=== PATIENT | female | born 1990 | race African-American/Black ===

== ENCOUNTER 2017-07-28 10:27 | Emergency (ER) | payer BC ==
[2017-07-28] MEDS ORDERED: Acetaminophen 325 MG TAB ONE (12:29)
== END 2017-07-28 13:40 | disposition home or self-care (01) ==
LOC: ERS 10:27
DX: J40 Bronchitis, not specified as acute or chronic (principal); F41.9 Anxiety disorder, unspecified; F17.210 Nicotine dependence, cigarettes, uncomplicated
CPT/HCPCS: 99284

== ENCOUNTER 2018-03-25 11:12 | Emergency (ER) | payer BC ==
[2018-03-25] MEDS ORDERED: Ketorolac Tromethamine 30 MG/ML VIAL ONE (12:20)
[2018-03-25] MEDS ORDERED: Metoclopramide HCl 10 MG/2 ML VIAL ONE (12:20)
[2018-03-25] MEDS ORDERED: diphenhydrAMINE 50 MG/ML VIAL ONE (12:20)
[2018-03-25] MEDS ORDERED: Dexamethasone 4 MG TAB ONE (13:23)
== END 2018-03-25 14:31 | disposition home or self-care (01) ==
LOC: ERS 11:12
DX: G43.909 Migraine, unspecified, not intractable, without status migrainosus (principal); F41.9 Anxiety disorder, unspecified; F17.210 Nicotine dependence, cigarettes, uncomplicated; Z71.6 Tobacco abuse counseling
CPT/HCPCS: 96365; 96375; 99406; J1200; J1885; J2765; J8540

== ENCOUNTER 2018-08-30 08:52 | Outpatient (CLI) | payer OTHER ==
--- NOTE | 2018-08-30 10:23 | MRI ---
MRI LUMBAR SPINE WITHOUT CONTRAST: Comparison: None. History: Low back pain causing pins and needle sensation in the lumbar region. Technique: Multiplanar, multisequence MRI images were obtained of the lumbar spine without contrast. FINDINGS: The vertebral bodies and intervertebral discs demonstrate normal height and alignment without fractur e or subluxation. No marrow signal abnormality is seen. The conus medullaris terminates normally at L 1. The prevertebral and paraspinal soft tissues are unremarkable. No significant bulge or protrusion is seen throughout the lumbar spine. No posterior or facet arthros is is seen. No central canal stenosis is present. No neural foraminal stenosis. IMPRESSION: Normal MRI of the lumbar spine. POS: [facility]
== END 2018-08-30 08:53 | disposition home or self-care (01) ==
LOC: MRI 08:52
PROVIDERS: ATTEND Family Medicine
DX: S39.012A Strain of muscle, fascia and tendon of lower back, initial encounter (principal); M54.16 Radiculopathy, lumbar region
CPT/HCPCS: 72148

== ENCOUNTER 2019-05-13 09:08 | Emergency (ER) | payer BC ==
[2019-05-13] MEDS ORDERED: Morphine 4 MG/ML VIAL ONE (09:28)
[2019-05-13 09:41] LABS: Pregnancy Test - Urine (BHCG) POSITIVE (Negative); Pregu Control Background? CLEAR/WHITE (CLR/WHITE); Pregu Control Bar Appear? YES (CONTROL BAR)
[2019-05-13 09:46] LABS: Bilirubin Negative (Negative); Blood, Urine 1+ (Negative); Clarity Turbid (Clear); Glucose, Urine (Dipstick) Normal (Negative); Leukocyte 500 Leu/uL (Negative); Nitrite Negative (Negative); Protein, Urine (Dipstick) 50 mg/dL (Neg-Trace); Urobilinogen 3 mg/dL (Less than 2); WBC/HPF Greater than 50 HPF (0-3)
[2019-05-13 09:50] LABS: #Basophils 0.1 thou/uL (0.0-0.2); #Eosinphils 0.1 thou/uL (0.0-0.7); #Lymphocytes 2.4 thou/uL (1.20-3.40); #Monocytes 0.7 thou/uL (0.11-0.59); %Basophils 0.7 % (0.0-1.0); %Eosinophils 0.8 % (0.0-10.0); %Lymphocytes 25.8 % (21.0-51.0); %Monocytes 7.3 % (0.0-10.0); %Neutrophils 65.4 % (42.0-75.0); Hemoglobin 13.4 g/dL (12.0-16.0); Mean Corpuscular HGB CONC 33.9 g/dL (32.0-36.0); Mean Corpuscular Hemoglobin 29.6 pg (27.0-31.0); Mean Corpuscular Volume 87.2 fL (78.0-98.0); Mean Platelet Volume 8.4 fL (7.4-10.4); Platelet Count 270 thou/uL (130-400); RBC Distribution Width 12.2 % (11.5-14.5); Red Blood Cell (RBC) Count 4.55 mill/uL (4.20-5.40); White Blood Cell (WBC) Count 9.2 thou/uL (4.8-10.8)
[2019-05-13 09:55] LABS: Bacteria/HPF 1+ HPF (None Seen); Mucous/LPF 2+ LPF (<2+)
[2019-05-13 10:10] LABS: ALT (SGPT) 13 U/L (8-55); AST (SGOT) 19 U/L (5-34); Alkaline Phosphatase 63 U/L (40-150); Anion Gap 12 mmol/L (10-20); BUN (Urea Nitrogen) 5 mg/dL (7.0-18.7); Bilirubin, Total 0.4 mg/dL (0.2-1.2); Calc. Creatinine Clearance 0 mL/min (70-130); Calcium 9.4 mg/dL (7.8-10.44); Carbon Dioxide 22 mmol/L (22-29); Chloride 109 mmol/L (98-107); Estimated GFR-MDRD Greater than 90; Globulin 3.1 g/dL (2.4-3.5); Glucose 104 mg/dL (70-105); Lipase 9 U/L (8-78); Potassium 3.6 mmol/L (3.5-5.1); Protein, Total 7.1 g/dL (6.0-8.3); Sodium 139 mmol/L (136-145)
[2019-05-13] MEDS ORDERED: cefTRIAXone\\ROCEPHIN 2 GM VIAL ONE (11:25)
--- NOTE | 2019-05-13 13:13 | ULT ---
PELVIC ULTRASOUND: Transabdominal and endovaginal ultrasound performed. INDICATION: with pain. FINDINGS: There is a circumscribed complex cystic structure within the endometrial cavity which may represent a residual gestational sac. There is echogenicity within this apparent gestational sac indicating yg dder debris. No pole identified. No evidence of heart activity. Both ovaries are identified and show normal flow with color Doppler and spectral analysis. A large r ight ovarian cyst is identified measuring 2.5 to 4.0 cm. There is moderate free fluid in the pelvis. IMPRESSION: A complex cystic structure within the endometrial cavity may represent a degenerating gestational sac and possibly represent missed . There is moderate free fluid in the pelvis and a large righ t ovarian cyst. Recommend continued close followup with serial HCG levels and followup ultrasound as indicated. POS: TRAVIS
== END 2019-05-13 13:05 | disposition home or self-care (01) ==
LOC: ERS 09:08
DX: O03.9 Complete or unspecified spontaneous abortion without complication (principal); F17.210 Nicotine dependence, cigarettes, uncomplicated
CPT/HCPCS: 36415; 76856; 80053; 81003; 81015; 81025; 83690; 84702; 85025; 86900; 86901; 96361; 96365; 96375; J0696; J2270

== ENCOUNTER 2020-02-24 17:42 | Emergency (ER) | payer BC, MEDICAID ==
[~2020-02-24 17:42] MED LIST: Iopamidol 370 76% 100 ML VIAL ONE
[2020-02-24 18:32] LABS: #Basophils 0.1 thou/uL (0.0-0.2); #Eosinphils 0.1 thou/uL (0.0-0.7); #Lymphocytes 3.3 thou/uL (1.20-3.40); #Monocytes 0.8 thou/uL (0.11-0.59); #Neutrophils 8.8 thou/uL (1.40-6.50); %Basophils 1.1 % (0.0-1.0); %Eosinophils 1.1 % (0.0-10.0); %Lymphocytes 25.1 % (21.0-51.0); %Monocytes 5.8 % (0.0-10.0); %Neutrophils 66.9 % (42.0-75.0); Mean Corpuscular HGB CONC 34.6 g/dL (32.0-36.0); Mean Corpuscular Hemoglobin 31.7 pg (27.0-31.0); Mean Corpuscular Volume 91.7 fL (78.0-98.0); Platelet Count 261 thou/uL (130-400); RBC Distribution Width 12.1 % (11.5-14.5); Red Blood Cell (RBC) Count 3.47 mill/uL (4.20-5.40); White Blood Cell (WBC) Count 13.1 thou/uL (4.8-10.8)
[2020-02-24] MEDS ORDERED: Acetaminophen 500 MG TAB ONE (18:43)
[2020-02-24 18:53] LABS: ALT (SGPT) 18 U/L (8-55); AST (SGOT) 22 U/L (5-34); Albumin 3.7 g/dL (3.5-5.0); Alkaline Phosphatase 52 U/L (40-110); Anion Gap 16 mmol/L (10-20); BUN (Urea Nitrogen) 4 mg/dL (7.0-18.7); Bilirubin, Total 0.2 mg/dL (0.2-1.2); CK (CPK) 49 U/L (29-168); Calc. Creatinine Clearance 0 mL/min (70-130); Calcium 9.1 mg/dL (7.8-10.44); Carbon Dioxide 18 mmol/L (22-29); Chloride 107 mmol/L (98-107); Estimated GFR-MDRD Greater than 90; Globulin 2.9 g/dL (2.4-3.5); Glucose 87 mg/dL (70-105); Potassium 3.5 mmol/L (3.5-5.1); Protein, Total 6.6 g/dL (6.0-8.3); Sodium 137 mmol/L (136-145)
--- NOTE | 2020-02-24 19:02 | RAD ---
PORTABLE CHEST: 02/24/20 PROVIDED CLINICAL HISTORY: Chest pain. FINDINGS: No comparisons. Cardiac and mediastinal silhouette is within normal limits. No focal consolidation, pleural fluid or pneumothorax apparent. IMPRESSION: No evidence for an acute cardiopulmonary process. POS: SHAHEEN
--- NOTE | 2020-02-24 19:33 | CT ---
CT arteriogram chest with IV contrast and 3-D imaging HISTORY: Chest pain. Dyspnea. Elevated d-dimer. FINDINGS: There is decreased relative opacification of the pulmonary arteries compared to the pulmona ry veins and aorta, related to timing of bolus. No evidence of right heart strain.. No focal filling defects are apparent. Bovine origin of the great vessels at the aortic arch. Residual thymus within the upper anterior medi astinum. No evidence of mediastinal adenopathy. IMPRESSION : No CT evidence of pulmonary embolus.
== END 2020-02-24 20:39 | disposition home or self-care (01) ==
LOC: ERS 17:42
DX: O99.89 Other specified diseases and conditions complicating pregnancy, childbirth and the puerperium (principal); R07.9 Chest pain, unspecified; Z3A.17 17 weeks gestation of pregnancy
CPT/HCPCS: 36415; 71045; 71275; 80053; 82550; 84484; 85025; 85379; 93005; 96360; 96361; Q9967

== ENCOUNTER 2020-03-16 09:59 | Day surgery (SDC) | payer OTHER ==
[2020-03-16 10:38] VITALS: BMI 27.6
[2020-03-16] MEDS ORDERED: hydrALAZINE 20 MG/ML VIAL SLOW IVP PRN (11:05)
[2020-03-16] MEDS ORDERED: Promethazine HCl 25 MG/ML VIAL IM PRN (11:05)
[2020-03-16] MEDS ORDERED: Morphine 4 MG/ML VIAL IM SCH (11:15)
[2020-03-16] MEDS ORDERED: Acetaminophen 500 MG TAB PO SCH (11:15)
[2020-03-16 11:23] LABS: Bacteria/HPF None Seen HPF (None Seen); Bilirubin Negative (Negative); Blood, Urine Negative (Negative); Clarity Clear (Clear); Glucose, Urine (Dipstick) Normal (Negative); Leukocyte 25 Leu/uL (Negative); Mucous/LPF 1+ LPF (<2+); Nitrite Negative (Negative); Protein, Urine (Dipstick) 10 mg/dL (Neg-Trace); RBC/HPF None Seen HPF (0-3); WBC/HPF 0-3 HPF (0-3)
--- NOTE | 2020-03-16 12:07 | HP ---
PRIMARY OB: Dr. Werner Yip. CHIEF COMPLAINT: Pelvic pain. HISTORY OF PRESENT ILLNESS: The patient is a 30-year-old G3, P1 female with an intrauterine at 29 weeks' gestation, presenting to Labor and Delivery with a several-day history of sharp stabbing pelvic pain. The patient reports that the pain is over her pubic bone area. She reports that it is worse with activity and movement. It has progressed over the last several days from being tolerable and mild to being severe. She thought initially that the pains are Alder Foley contractions and did not think much of them. The patient has several days off at work and has been at home resting. The patient denies fever, cough, headache, chest pain. She does report some shortness of breath over the last while and was seen in the emergency room for chest pain earlier in the month. She denies any chest pain currently. Denies nausea, vomiting. She does report some diarrhea the last couple of days. Denies constipation. Denies any new rashes, hip problems, knee problems, muscle weakness. Denies vaginal bleeding. She does report some discharge. This has been different in the last few days. Denies any urinary urgency or frequency. PAST MEDICAL HISTORY: Negative. PAST SURGICAL HISTORY: Negative. SOCIAL HISTORY: Patient denies drug, alcohol, or tobacco use. 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 ALLERGIES: NO KNOWN DRUG ALLERGIES. MEDICATIONS: vitamins and Lunesta. OB LABS: Unavailable at time of dictation. PHYSICAL EXAMINATION: VITAL SIGNS: Blood pressure is 124/77, heart rate of 92, respiratory rate of 22, temperature 99.0. GENERAL: She appears to be in distress with movement. She is alert and oriented, cooperative, and pleasant to interact with. HEAD: Normocephalic, atraumatic. LUNGS: Clear to auscultation bilaterally. HEART: Regular rate and rhythm. ABDOMEN: Gravid and soft. She does have tenderness particularly in the left lower quadrant with deviation of the uterus she has to the right. She has no tenderness in the right lower quadrant. She has no pubic bone tenderness. No SI joint tenderness. No CVA tenderness. No vertebral or paravertebral tenderness. EXTREMITIES: Nontender, nonedematous. : Vulva is without masses, lesions, or erythema. Vagina is moist. She has minimal discharge. Cervix is visibly closed. VP3 was collected. On digital exam, cervix is firm and closed. Manipulation of the cervix and uterus reproduce this significant pain. Palpation of the fundus does not cause pain. heart tones are in the 150s. Urinalysis and VP3 are collected and results are pending. ASSESSMENT AND PLAN: The patient is a 30-year-old female with an intrauterine at 29 weeks with what appears to be significant musculoskeletal pain of , located primarily in the left lower quadrant, likely involving the cardinal ligament or other ligamentous structures in that region. She has no evidence of labor at this time or history that is not consistent with other things like a kidney stone. We are waiting on a urinalysis and VP3 for further information. The patient has been counseled to things at home that may assist with this pain as it is healing is a belly band, 2 Tylenol 3 times a day to be taken regularly for best results, heat to the area as comfortable. We are giving her 8 mg of morphine IM with 12.5 mg of Phenergan and 2 Tylenol here to give her some temporary relief now. The patient just had an appointment with her provider a few days ago. At that time, symptoms were not severe enough that she felt that they needed to be brought up to a doctor. She is being counseled to follow up with her primary OB as scheduled or sooner if she continues to have persistent problems at home that she cannot manage with [id number] medications. The patient has also been counseled that when she is feeling a bit better, doing squatting exercises with her own body weight may help her with her mobility and perhaps aid in reducing chances of this again as she lifts and moves things more focused with her legs. Job ID: [id number]
== END 2020-03-16 12:16 | disposition home health service (06) ==
LOC: L&D/OP 09:59
PROVIDERS: ATTEND Obstetrics & Gynecology
DX: O99.89 Other specified diseases and conditions complicating pregnancy, childbirth and the puerperium (principal); R10.2 Pelvic and perineal pain; O23.593 Infection of other part of genital tract in pregnancy, third trimester; B96.89 Other specified bacterial agents as the cause of diseases classified elsewhere; Z3A.29 29 weeks gestation of pregnancy
CPT/HCPCS: 81001; 87480; 87510; 87660; J2270; J2550

== ENCOUNTER 2020-03-20 20:37 | Day surgery (SDC) | payer OTHER ==
[2020-03-20 21:08] VITALS: TEMP 98.9; BMI 26.8
[2020-03-20] MEDS ORDERED: Morphine 4 MG/ML VIAL SLOW IVP SCH (22:00)
[2020-03-20 23:01] LABS: #Basophils 0.1 thou/uL (0.0-0.2); #Eosinphils 0.1 thou/uL (0.0-0.7); #Lymphocytes 3.3 thou/uL (1.20-3.40); #Monocytes 1.1 thou/uL (0.11-0.59); #Neutrophils 13.5 thou/uL (1.40-6.50); %Basophils 0.7 % (0.0-1.0); %Eosinophils 0.7 % (0.0-10.0); %Lymphocytes 18.2 % (21.0-51.0); %Neutrophils 74.4 % (42.0-75.0); Hemoglobin 11.2 g/dL (12.0-16.0); Mean Corpuscular HGB CONC 33.8 g/dL (32.0-36.0); Mean Corpuscular Hemoglobin 30.9 pg (27.0-31.0); Mean Corpuscular Volume 91.5 fL (78.0-98.0); Mean Platelet Volume 8.7 fL (7.4-10.4); Platelet Count 273 thou/uL (130-400); RBC Distribution Width 12.4 % (11.5-14.5); White Blood Cell (WBC) Count 18.1 thou/uL (4.8-10.8)
[2020-03-21] MEDS ORDERED: Morphine 4 MG/ML VIAL SLOW IVP SCH (03:00)
--- NOTE | 2020-03-21 07:30 | MRI ---
MRI PELVIS WITHOUT CONTRASTS: Date: 03/21/2020 HISTORY: Pain. COMPARISON: None. FINDINGS: Single, live intrauterine . Anterior placenta. No placental abnormality. No free fluid in the pelvis. No inguinal hernia. No ventral hernia. No adenopathy. The bone marrow signal is normal. No dilated loops of bowel within the pelvis. IMPRESSION: No inguinal hernia. No findings to explain patient's left lower quadrant pain. POS: HOME
[2020-03-21] MEDS ORDERED: hydrALAZINE 20 MG/ML VIAL SLOW IVP PRN (07:43)
[2020-03-21] MEDS ORDERED: HYDROcodone/Acetaminophen 5/325 mg Tablet PO PRN ×2 (07:59)
[2020-03-21] MEDS ORDERED: Ibuprofen 600 MG TAB PO PRN (07:59)
--- NOTE | 2020-03-21 08:01 | PRG ---
DATE OF SERVICE: 03/20/2020 PRIMARY OB: Werner Yip DO, MS CHIEF COMPLAINT: Pelvic pain. HISTORY OF PRESENT ILLNESS: The patient is a 30-year-old female with an intrauterine at 21 weeks and 6 days, who presented to Labor and Delivery with persistent severe left lower quadrant pain, for which she had been seen earlier in the clinic with Dr. Yip. At that time, the patient was given a shot of Rocephin and hydrocodone hoping that it was just a really bad cystitis. The patient was given instructions to return to Labor and Delivery should her pain persist. The patient has re-presented and with this continued left lower quadrant pain, states the hydrocodone, she has taken one tablet and had not helped. 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 She also denies nausea and vomiting. Denies fever. Denies diarrhea or constipation. Denies vaginal bleeding, leakage of fluid, urinary urgency or frequency. Denies headache, chest pain, shortness of breath, new rashes, hip problems, knee problems, muscle weakness. PAST MEDICAL HISTORY: Negative. PAST SURGICAL HISTORY: Negative. SOCIAL HISTORY: Denies drug, alcohol, tobacco use. ALLERGIES: NO KNOWN DRUG ALLERGIES. MEDICATIONS: vitamins and Bonjesta. OB LABS: Unavailable at time of dictation. PHYSICAL EXAMINATION: VITAL SIGNS: Blood pressure 128/70, heart rate of 90, respiratory rate 18. GENERAL: She appears to be in some distress with movement, but otherwise she is alert and oriented, and cooperative and pleasant to interact. HEENT: Head is normocephalic, atraumatic. LUNGS: Clear to auscultation bilaterally. HEART: Has regular rate and rhythm. ABDOMEN: Gravid. She has had persistent tenderness in the left lower pelvis exacerbated with deviation of the uterus to the right. EXTREMITIES: Nontender, nonedematous. IMAGING DATA: MRI was performed for evaluation of other pelvic pathologies including inguinal hernia, presence of a large ovary or cyst. There were no acute findings found on MRI. No free fluid in the pelvis. No inguinal hernia. No ventral hernia. No adenopathy. No dilated loops of bowel in the pelvis. ASSESSMENT AND PLAN: The patient will be updated with these findings. She has tolerated her stay well with pain control. Reassurance will be given as this pain is likely ligamentous in nature. As noted, there is no acute pathology found on imaging and she has no signs or symptoms of infection or labor. The patient is being discharged to home. Job ID: [id number]
[2020-03-21] MEDS ORDERED: Ondansetron PF 4 MG/2 ML Vial ONE (08:16)
== END 2020-03-21 09:20 | disposition home or self-care (01) ==
LOC: L&D/OP 20:37
PROVIDERS: ATTEND Obstetrics & Gynecology
DX: O99.89 Other specified diseases and conditions complicating pregnancy, childbirth and the puerperium (principal); R10.32 Left lower quadrant pain; Z3A.21 21 weeks gestation of pregnancy
CPT/HCPCS: 36415; 72195; 85025; 85384; 96374; 99283; J2270; J2405

== ENCOUNTER 2020-07-02 13:20 | Day surgery (SDC) | payer OTHER ==
[2020-07-02 14:05] VITALS: BMI 27.4
[2020-07-02] MEDS ORDERED: hydrALAZINE 20 MG/ML VIAL SLOW IVP PRN (14:30)
--- NOTE | 2020-07-03 10:22 | SS ---
DATE OF ADMISSION: 07/02/2020 DATE OF DISCHARGE: 07/02/2020 Labor and Delivery Triage Note REGULAR PHYSICIAN: Werner Yip DO MS EVALUATING PHYSICIAN: Lawrence Clay MD CHIEF COMPLAINT: Contractions at home. HISTORY OF PRESENT ILLNESS: Ms. Hodgson is a 30-year-old black G3, P1, AB1 with an estimated date of confinement of 07/26/2020, who presents complaining of contractions at home, approximately every 4-7 minutes. She denies ruptured membranes or vaginal bleeding. Her care has been with Dr. Yip and has been reportedly uncomplicated. PAST OBSTETRICAL HISTORY: Includes 1 vaginal delivery at term. PAST MEDICAL HISTORY: None. PAST SURGICAL HISTORY: None. CURRENT MEDICATIONS: 1. vitamins. 2. Iron. ALLERGIES: NO KNOWN ALLERGIES. SOCIAL HISTORY: Denies tobacco, alcohol, or drug use. FAMILY HISTORY: Unremarkable. REVIEW OF SYSTEMS: Denies nausea, vomiting, fever, chills, ruptured membranes, or vaginal bleeding. PHYSICAL EXAMINATION: VITAL SIGNS: In triage, her vital signs are stable and she is afebrile. GENERAL: She is pleasant and in no acute distress. PELVIC: heart rate tracing is stable with spontaneous accelerations. Only the occasional contraction is seen. She is examined an hour apart and with each exam, her cervix is shown to be 1 cm dilated, 50% effaced with the vertex ballotable. ASSESSMENT: 1. 36-5/7th week intrauterine . 2. No evidence of active labor at this time. PLAN: Patient will be dismissed to home. She will hydrate herself well and continue to watch for signs and symptoms of labor. She states that she has an appointment with Dr. Yip on 07/04/2020. Job ID: [id number]
== END 2020-07-02 15:24 | disposition home or self-care (01) ==
LOC: L&D/OP 13:20
PROVIDERS: ATTEND Obstetrics & Gynecology
DX: O47.03 False labor before 37 completed weeks of gestation, third trimester (principal); O09.293 Supervision of pregnancy with other poor reproductive or obstetric history, third trimester; Z3A.36 36 weeks gestation of pregnancy
CPT/HCPCS: 99282

== ENCOUNTER → 2020-07-17 | Day surgery (SDC) | payer OTHER ==
[~2020-07-17] MED LIST changes: -Iopamidol 370 76% 100 ML VIAL ONE; +hydrALAZINE 20 MG/ML VIAL SLOW IVP PRN
[2020-07-17 15:42] VITALS: BP 134/83; TEMP 98.4
[2020-07-17 15:43] VITALS: BMI 30.7
[2020-07-17 16:23] LABS: Amnisure Test No Membranes Rupture (No Rupture)
[2020-07-17 16:24] LABS: Amnisure Internal Control QC ACCEPTABLE (ACCEPTABLE)
--- NOTE | 2020-07-17 20:41 | PRG ---
DATE OF SERVICE: 07/17/2020 PRIMARY OB: Dr. Werner Yip. CHIEF COMPLAINT: Leakage of fluid. HISTORY OF PRESENT ILLNESS: The patient is a 30-year-old, G3, P1 female with an intrauterine at 38 weeks and 2 days, presenting to Labor and Delivery with leakage of fluid since about 5:00. The patient reports that she has been having continuous moisture onto her pad throughout the day. It has not been enough to soak through clothing, but she feels like it is more watery than discharge. She denies vaginal bleeding. She denies uterine contractions. She denies fever, cough, headache, chest pain, or shortness of breath. She denies nausea or vomiting. She denies diarrhea or constipation, hip problems, knee problems, muscle weakness, or urinary urgency or frequency. PAST MEDICAL HISTORY: Negative. PAST SURGICAL HISTORY: Negative. SOCIAL HISTORY: Negative. Denies drug, alcohol, or tobacco use. ALLERGIES: NO KNOWN DRUG ALLERGIES. MEDICATIONS: vitamins and iron. OB LABORATORY DATA: Blood type is A positive. Antibody screen is negative. VDRL is nonreactive in the first and third trimester. HIV is nonreactive in the first and third trimester. GC and Chlamydia are negative. She is rubella immune. 1-hour Glucola is 105. She is GBS negative. REVIEW OF SYSTEMS: Per HPI. PHYSICAL EXAMINATION: VITAL SIGNS: Blood pressure is 134/72, heart rate of 84, respiratory rate of 18, saturating 100% on room air, and temperature 98.4. GENERAL: She appears to be in no acute distress. She is alert, oriented, cooperative, and pleasant to interact with. HEAD: Normocephalic and atraumatic. LUNGS: Clear to auscultation bilaterally. HEART: Has a regular rate and rhythm. EXTREMITIES: Nontender and nonedematous. Vulva is without masses, lesions, or erythema. She does have some curd-like discharge on her labia. On speculum exam, there is no evidence of pooling with cough or Valsalva, but she does have quite a bit of white discharge present. Cervical exam per nursing staff is 1, 40, and -2 station. Declined repeating her exam at the time of my exam. heart tracing shows the fetus with a baseline in the 130s with moderate long-term variability, positive 15 x 15 accelerations, no decelerations. She has occasional contractions and some irritability. AmniSure test is negative. ASSESSMENT AND PLAN: The patient is a 30-year-old, G3, P1 female with an intrauterine at 38 weeks and 2 days, presenting for some leakage of fluid. The patient has no evidence of rupture of membranes at this time. Clinically, the patient appears to have a yeast infection that maybe explaining some increased transudate to the area, perhaps, causing her to feel more wet than usual. The patient has been counseled to use some gobl-zha-fzoqctz medications to see if this will resolve. She has been given term labor precautions. Fetus has a category 1 tracing and reactive NST, and the patient has been discharged home with instructions to follow up with her primary OB on Thursday as scheduled. Job ID: [id number]
== END ==
LOC: L&D/OP 15:04
PROVIDERS: ATTEND Obstetrics & Gynecology
DX: O99.89 Other specified diseases and conditions complicating pregnancy, childbirth and the puerperium (principal); N89.8 Other specified noninflammatory disorders of vagina; O98.813 Other maternal infectious and parasitic diseases complicating pregnancy, third trimester; A74.9 Chlamydial infection, unspecified; Z3A.38 38 weeks gestation of pregnancy; Z79.899 Other long term (current) drug therapy
CPT/HCPCS: 84112; 99284

== ENCOUNTER 2020-07-19 04:47 | Inpatient (IN) | payer OTHER ==
[2020-07-19] MEDS ORDERED: hydrALAZINE 20 MG/ML VIAL SLOW IVP PRN ×3 (05:14→22:37)
[2020-07-19 05:28] VITALS: BMI 31.1
--- NOTE | 2020-07-19 07:17 | PDOC.LDHP ---
Labor and Delivery H&P Chief complaint: contractions HPI: 30 y/o at 38w4d, patient of Dr. Yip, presents with ctx this morning. Denies VB, LOF, or decreased FM. She was seen a couple days ago for yeast infection and started treatment last night. ROS neg for HEENT, cv, pulm, gi, gu, neuro, psych, skin, musculoskeletal or constitutional symptoms other than mentioned above. OB History Details: 1 at term Current complications: none Past Medical History: None Current medications: pre- vitamins Previous surgical history: none Allergies/Adverse Reactions: Allergies Allergy/AdvReac Type Severity Reaction Status Date / Time No Known Allergies Allergy Verified 07/19/20 05:24 Social history: none - Physical Exam Vital signs reviewed and normal: yes Abnormal vital signs: mild range BPs General: NAD, resting Lungs: nonlabored breathing Abdomen: gravid Extremeties: no edema FHT: category 1 (135, mod variability, + accels, no decels) [place] contractions every: 3-5 mins - Vaginal Exam cm dilated: 2 Effacement: 25% Station: -3 - Assessment 30 y/o at 38w4d with ctx and mild range BPs. status reassuring with reactive NST. - Plan -: PIH labs pending. Continue to monitor BPs. Will recheck around 8am.
[2020-07-19] MEDS ORDERED: Carboprost 250 MCG/ML AMP IM PRN (07:38)
[2020-07-19] MEDS ORDERED: HYDROcodone/Acetaminophen 5/325 mg Tablet PO PRN ×2 (07:38)
[2020-07-19] MEDS ORDERED: Butorphanol Tartrate 1 MG/ML VIAL SLOW IVP PRN (07:38)
[2020-07-19] MEDS ORDERED: Promethazine HCl 25 MG/ML VIAL IM PRN (07:38)
[2020-07-19] MEDS ORDERED: Ondansetron PF 4 MG/2 ML Vial IVP PRN (07:38)
[2020-07-19] MEDS ORDERED: Diphenoxylate HCl/Atropine Tablet PO PRN ×2 (07:38)
[2020-07-19] MEDS ORDERED: NS / Oxytocin 40 units/1000ml 1,000 ML IV PRN (07:38)
[2020-07-19] MEDS ORDERED: Lidocaine 1% (PF) 30 ML VIAL SC PRN (07:38)
[2020-07-19] MEDS ORDERED: Ibuprofen 800 MG TAB PO PRN (07:38)
[2020-07-19] MEDS ORDERED: Acetaminophen 500 MG TAB PO PRN (07:38)
[2020-07-19] MEDS ORDERED: Misoprostol 200 MCG TAB PR PRN (07:38)
--- NOTE | 2020-07-19 07:42 | PDOC.BPN ---
- Brief Progress Note Encounter Date: 07/19/20 Encounter Time: 07:41 Patient with continued mild range BPs at term. Will admit for induction/augmentation. Labs pending.
[2020-07-19] MEDS ORDERED: NS w/ Oxytocin 10 units 500 ML IV SCH (07:45)
[2020-07-19] MEDS: Lactated Ringer's 1,000 ML IV SCH ×3 (07:50→15:06)
[2020-07-19 07:54] LABS: #Basophils 0.1 thou/uL (0.0-0.2); #Eosinphils 0.1 thou/uL (0.0-0.7); #Lymphocytes 2.1 thou/uL (1.20-3.40); #Monocytes 1.1 thou/uL (0.11-0.59); #Neutrophils 10.9 thou/uL (1.40-6.50); %Basophils 0.4 % (0.0-1.0); %Eosinophils 0.4 % (0.0-10.0); %Lymphocytes 14.5 % (21.0-51.0); %Neutrophils 76.8 % (42.0-75.0); Hemoglobin 10.8 g/dL (12.0-16.0); Mean Corpuscular HGB CONC 33.1 g/dL (32.0-36.0); Mean Corpuscular Hemoglobin 30.1 pg (27.0-31.0); Mean Corpuscular Volume 90.8 fL (78.0-98.0); Mean Platelet Volume 9.4 fL (7.4-10.4); Platelet Count 208 thou/uL (130-400); RBC Distribution Width 15.3 % (11.5-14.5); Red Blood Cell (RBC) Count 3.59 mill/uL (4.20-5.40); White Blood Cell (WBC) Count 14.2 thou/uL (4.8-10.8)
[2020-07-19 08:02] LABS: Creatinine, Urine 56.78 mg/dL (47-110); Protein, Urine Random Quant Less than 10 mg/dL (1-14)
[2020-07-19 08:14] LABS: ALT (SGPT) Less than 7 U/L (8-55); AST (SGOT) 14 U/L (5-34); Alkaline Phosphatase 173 U/L (40-110); Anion Gap 13 mmol/L (10-20); BUN (Urea Nitrogen) Less than 4 mg/dL (7.0-18.7); Bilirubin, Total 0.4 mg/dL (0.2-1.2); Calc. Creatinine Clearance 201 mL/min (70-130); Calcium 8.2 mg/dL (7.8-10.44); Carbon Dioxide 20 mmol/L (22-29); Chloride 106 mmol/L (98-107); Estimated GFR-MDRD Greater than 90; Glucose 81 mg/dL (70-105); Potassium 3.7 mmol/L (3.5-5.1); Sodium 135 mmol/L (136-145)
[2020-07-19 09:32] LABS: Syphilis Antibody Nonreactive (Nonreactive); Syphilis Antibody Index 0.04 S/CO (<1.00 Non-Reactive)
[2020-07-19 09:33] LABS: Hep B Surf Ag Non-Reactive S/CO (NonReactive)
--- NOTE | 2020-07-19 12:49 | PDOC.LDPN ---
Labor & Delivery Progress Note - Subjective Subjective: comfortable - Objective Vital signs reviewed and normal: yes (mild range BP) General: breathing through contractions Dilation: 4 Effacement: 50% Station: -1 FHT: category 1 - Assessment (1) 38 weeks gestation of Code(s): Z3A.38 - 38 WEEKS GESTATION OF Current Visit: Yes Status: Acute (2) Gestational hypertension Code(s): O13.9 - GESTATIONAL HTN W/O SIGNIFICANT PROTEINURIA, UNSP TRIMESTER Current Visit: Yes Status: Acute Plan: continue plan of care -: Continue pitocin augmentation.
[2020-07-19] MEDS ORDERED: Fentanyl 4 mcg/Bup 0.1% Cadd 100 ML ONE ×2 (13:25→20:09)
--- NOTE | 2020-07-19 16:38 | PDOC.LDPN ---
Labor & Delivery Progress Note - Subjective Subjective: comfortable - Objective Vital signs reviewed and normal: yes General: resting Dilation: 6 Effacement: 90% Station: -1 FHT: category 1 [place] contractions every: 4 - Assessment (1) 38 weeks gestation of Code(s): Z3A.38 - 38 WEEKS GESTATION OF Current Visit: Yes Status: Acute (2) Gestational hypertension Code(s): O13.9 - GESTATIONAL HTN W/O SIGNIFICANT PROTEINURIA, UNSP TRIMESTER Current Visit: Yes Status: Acute Plan: continue plan of care
[2020-07-19 17:58] LABS: SARS-CoV-2 MS2 Positive; SARS-CoV-2 N Gene Negative; SARS-CoV-2 S Gene Negative; SARS-CoV-2 by NAA Not Detected (NotDetected); SARS-CoV-2 orf1ab Negative
[2020-07-19] MEDS ORDERED: Lidocaine 1% (PF) 30 ML VIAL ONE (19:27)
[2020-07-19] MEDS ORDERED: NS / Oxytocin 40 units/1000ml 1,000 ML ONE (19:27)
[2020-07-19] MEDS ORDERED: Misoprostol 200 MCG TAB ONE (22:22)
[2020-07-19] MEDS ORDERED: Lanolin Ointment 7 GM TUBE TOP PRN (22:37)
[2020-07-19] MEDS ORDERED: Milk Of Magnesia 30 ML UDCUP PO PRN (22:37)
[2020-07-19] MEDS ORDERED: Bisacodyl 10 MG SUPP PR PRN (22:37)
--- NOTE | 2020-07-19 22:41 | PDOC.OPDEL ---
OB Operative/Delivery Note Delivery Dr/Surgeon: Lj Assist: None Pre-Delivery Diagnosis: active labor, other (Gestational HTN) Procedure/Post Delivery Dx: spontaneous vaginal delivery Weeks gestation: 38 Anesthesia: epidural - Findings A Sex: male - 1 min: 8 (verbal) - 5 min: 9 (verbal) - Additional Findings/Plan Placenta delivered: spontaneous (schult at 2220;baby at 2215. Cytotec 1000mcg SD x1 at 2224 for brief uterine atony...resolved with I/O cath and uterine massage.) Estimated blood loss: 500 Compilations/Other Findings: no lacs, no NC, baby vigorous. Delayed cord clamp done for 30 seconds. Post delivery plan: routine recovery
[2020-07-19] MEDS ORDERED: NS / Oxytocin 40 units/1000ml 1,000 ML IV SCH (22:45)
--- NOTE | 2020-07-20 01:31 | PDOC.BPN ---
- Brief Progress Note Encounter Date: 07/20/20 Encounter Time: 01:30 Temp noted as 101 but clinically well. Could be cytotec effect as 1000mcg were given. I will order ancef 2 hrams IV x 1 now to cover just in case
[2020-07-20] MEDS ORDERED: CEFAZOLIN 2 GM in Premix Bag 1 BAG IVPB SCH (01:45)
[2020-07-20] MEDS: Ibuprofen 800 MG TAB PO SCH ×3 (04:59→21:45)
[2020-07-20 05:14] LABS: Hemoglobin 7.9 g/dL (12.0-16.0); Mean Corpuscular HGB CONC 33.4 g/dL (32.0-36.0); Mean Corpuscular Hemoglobin 30.3 pg (27.0-31.0); Mean Corpuscular Volume 90.8 fL (78.0-98.0); Mean Platelet Volume 10.1 fL (7.4-10.4); Platelet Count 167 thou/uL (130-400); RBC Distribution Width 15.3 % (11.5-14.5); White Blood Cell (WBC) Count 14.8 thou/uL (4.8-10.8)
[2020-07-20] MEDS: Prenatal Vitamin 1 TAB PO SCH (07:37)
[2020-07-20] MEDS: Docusate Calcium (SURFAK) 240 MG CAP PO SCH ×2 (07:37→21:46)
[2020-07-20] MEDS: Acetaminophen/Codeine 30-300mg Tablet PO PRN ×3 (07:40→20:37)
[2020-07-20] MEDS ORDERED: Adacel (T-DAP) 0.5 ML SYRINGE IM ONE (09:00)
[2020-07-20] MEDS ORDERED: Measles/Mumps/Rubella 10 MCG/0.5 ML VIAL SC ONE (09:00)
--- NOTE | 2020-07-20 09:33 | PDOC.PP ---
Post Progress Note Post Day #: 1 Subjective: doing well, formula feeding, no concerns PO intake tolerated: yes Flatus: yes Ambulation: yes Vital Signs (12 hours) Temp Pulse Resp BP Pulse Ox 07/20/20 07:56 98.8 F 81 20 131/77 99 07/20/20 05:00 99.3 F 88 18 129/70 99 07/20/20 02:45 98.9 F 99 20 132/66 07/20/20 01:45 99.9 F H 91 20 142/84 H 99 Weight Weight 193 lb - Physical Examination General: NAD Respiratory: non-labored breathing Fundus firm & at: below umb Neurological: no gross focal deficits Psychiatric: A&Ox3, normal affect Result Diagrams: 07/20/20 04:47 07/19/20 07:26 Additional Labs: Post Labs Hep Bs Antigen Non-Reactive S/CO (NonReactive) 07/19/20 08:00 Blood Type A POSITIVE 07/19/20 08:00 (1) 38 weeks gestation of Code(s): Z3A.38 - 38 WEEKS GESTATION OF Status: Acute (2) Gestational hypertension Code(s): O13.9 - GESTATIONAL HTN W/O SIGNIFICANT PROTEINURIA, UNSP TRIMESTER Status: Acute - Assessment/Plan PPD1 doing well, anticipate DC tomorrow, BP normal to mild.
[2020-07-20] MEDS: Ferrous Sulfate 325 MG TAB PO SCH ×2 (09:39→17:19)
[2020-07-21] MEDS: Ibuprofen 800 MG TAB PO SCH ×2 (05:27→13:38)
--- NOTE | 2020-07-21 07:02 | PDOC.PP ---
Post Progress Note Post Day #: 2 Subjective: Feeling well. Looking forward to going home today. PO intake tolerated: yes Flatus: yes Ambulation: yes Vital Signs (12 hours) Temp Pulse Resp BP Pulse Ox 07/20/20 20:15 98.3 F 85 16 118/59 L 99 Weight Weight 87.543 kg - Physical Examination General: NAD Cardiovascular: no m/r/g, RRR Respiratory: clear to auscultation bilaterally Abdominal: + bowel sounds, lochia (downtrending), no distention, appropriately TTP Fundus firm & at: 1 fingerwidth below umbilicus Neurological: no gross focal deficits Psychiatric: A&Ox3, normal affect Result Diagrams: 07/20/20 04:47 07/19/20 07:26 Additional Labs: Post Labs Hep Bs Antigen Non-Reactive S/CO (NonReactive) 07/19/20 08:00 Blood Type A POSITIVE 07/19/20 08:00 (1) 38 weeks gestation of Code(s): Z3A.38 - 38 WEEKS GESTATION OF Status: Acute (2) Gestational hypertension Code(s): O13.9 - GESTATIONAL HTN W/O SIGNIFICANT PROTEINURIA, UNSP TRIMESTER Status: Acute - Assessment/Plan 30 yo G3 now P2012 at 38 wga: PPD #2 s/p : - doing well, routine cares - meeting all milestones gHTN - BP 130/70s, may have chronic hypertension. - Recommend BP follow up Dispo: anticipate d/c today. F/U as requested by PCP. Addendum - Attending - Attending Attestation Date/Time: 07/21/20 [id number] I personally evaluated the patient and discussed the management with Dr. Causey. I agree with the History, Examination, Assessment and Plan documented above.
[2020-07-21] MEDS: Docusate Calcium (SURFAK) 240 MG CAP PO SCH (09:06)
[2020-07-21] MEDS: Ferrous Sulfate 325 MG TAB PO SCH (09:06)
[2020-07-21] MEDS: Prenatal Vitamin 1 TAB PO SCH (09:06)
[2020-07-21] MEDS: Acetaminophen/Codeine 30-300mg Tablet PO PRN (09:09)
[2020-07-21 09:12] VITALS: TEMP 97.7
[2020-07-21 10:11] VITALS: BP 141/87
== END 2020-07-21 13:40 | disposition home or self-care (01) | DRG 807 ==
LOC: L&D/OP 04:47 → L&D 22:35 → 3SW 07-20 02:22
PROVIDERS: ADMIT Obstetrics & Gynecology; ATTEND Obstetrics & Gynecology
PROC: 10E0XZZ Delivery of Products of Conception, External Approach (ICD-10-PCS; principal; 2020-07-19)
PROC: 10907ZC Drainage of Amniotic Fluid, Therapeutic from Products of Conception, Via Natural or Artificial Opening (ICD-10-PCS; 2020-07-19)
PROC: 3E033VJ Introduction of Other Hormone into Peripheral Vein, Percutaneous Approach (ICD-10-PCS; 2020-07-19)
PROC: 3E0P7VZ Introduction of Hormone into Female Reproductive, Via Natural or Artificial Opening (ICD-10-PCS; 2020-07-19)
DX: O13.4 Gestational [pregnancy-induced] hypertension without significant proteinuria, complicating childbirth (principal); Z37.0 Single live birth; Z20.828 Contact with and (suspected) exposure to other viral communicable diseases; O75.89 Other specified complications of labor and delivery; Z3A.38 38 weeks gestation of pregnancy
CPT/HCPCS: 36415; 51702; 80053; 82570; 84156; 85025; 85027; 86780; 86850; 86900; 86901; 87340; 87635; 99285; J0595; J0690; J2001; J2550; J2590; U0003

== ENCOUNTER 2020-08-14 16:59 | Observation (INO) | payer OTHER ==
[2020-08-14] MEDS ORDERED: hydrALAZINE 20 MG/ML VIAL SLOW IVP PRN (17:03)
[2020-08-14] MEDS ORDERED: Ondansetron PF 4 MG/2 ML Vial IVP PRN (17:03)
[2020-08-14] MEDS ORDERED: Promethazine HCl 25 MG/ML VIAL IM PRN (17:03)
[2020-08-14] MEDS ORDERED: Calcium Gluconate 4.6 MEQ in Sodium Chloride 0.9% 100 ML IVPB PRN (17:03)
[2020-08-14] MEDS ORDERED: Zolpidem Tartrate 5 MG TAB PO PRN (17:03)
[2020-08-14] MEDS ORDERED: Butorphanol Tartrate 1 MG/ML VIAL SLOW IVP PRN (17:03)
[2020-08-14] MEDS ORDERED: Labetalol HCl 100 MG/20 ML VIAL SLOW IVP PRN (17:07)
[2020-08-14 17:08] VITALS: BMI 27.4
[2020-08-14] MEDS ORDERED: Magnesium Sulfate 20 gm/500 ml 20 GM/500 ML BAG ONE (17:11)
--- NOTE | 2020-08-14 17:12 | PDOC.LDHP ---
Labor and Delivery H&P Chief complaint: other (c/o RESENDIZ and elevated BP x 4 days) HPI: 30 yo BF s/p on 07/19/20 presents c/o RESENDIZ and elevated BP x [address]. [address] Yip yesterday and started on Procardia 30 XL. Went ot ER this AM, noted to have severe range pressures depite Apresoline. CT of head obtained, normal. Labs are normal. Grav: 3 Para: 2 OB History Details: x2 SAB x1, no D&C Current complications: other (see above) Current medications: iron (Procardia XL 30 QD) Previous surgical history: none Allergies/Adverse Reactions: Allergies Allergy/AdvReac Type Severity Reaction Status Date / Time No Known Allergies Allergy Verified 07/19/20 05:24 Social history: none - Physical Exam Vital signs reviewed and normal: yes Abnormal vital signs: BP to 160/100s in ER General: NAD Heart: RRR Lungs: CTAB Abdomen: NTTP Extremeties: trace edema - Assessment PIH - Plan Plan: observation in L&D, magnesium for seizure prophylaxis (Procardia, Labetalol ordered Watch BPs carefully. Dr. Yip aware of admit)
[2020-08-14] MEDS ORDERED: Magnesium Sulfate 20 gm/500 ml 20 GM/500 ML BAG IVPB SCH (17:15)
[2020-08-14] MEDS ORDERED: Ibuprofen 800 MG TAB PO PRN (19:16)
[2020-08-14 21:04] VITALS: TEMP 98.4
[2020-08-15] MEDS: Lactated Ringer's 1,000 ML IV SCH ×2 (06:40→17:23)
--- NOTE | 2020-08-15 08:11 | PDOC.LDPN ---
Labor & Delivery Progress Note - Subjective Subjective: comfortable, other (headache resolved) - Objective Vital signs reviewed and normal: yes (normal BP) General: NAD, resting Other exam findings: No SENIOR CHEMIST findings - Assessment (1) Preeclampsia in period Code(s): O14.95 - UNSPECIFIED PRE-ECLAMPSIA, COMPLICATING THE PUERPERIUM Current Visit: Yes Status: Acute Plan: continue plan of care -: Continue magnesuim for seizure prophylaxis through 24 hours. We discussed observation overnight to watch BP off magnesium with likely DC tomorrow.
[2020-08-15] MEDS: Acetaminophen 500 MG TAB PO PRN ×2 (08:58→15:12)
[2020-08-15] MEDS ORDERED: NIFEdipine XL 30 MG TAB PO SCH (09:00)
[2020-08-15] MEDS ORDERED: Labetalol 100 MG TAB PO SCH ×2 (15:00→21:00)
[2020-08-15 23:30] VITALS: BP 121/73
--- NOTE | 2020-08-16 07:52 | PDOC.LDPN ---
Labor & Delivery Progress Note - Subjective Subjective: comfortable - Objective Vital signs reviewed and normal: yes General: resting - Assessment (1) Preeclampsia in period Code(s): O14.95 - UNSPECIFIED PRE-ECLAMPSIA, COMPLICATING THE PUERPERIUM Current Visit: Yes Status: Acute Plan: other -: HD2 sp admission for post severe PIH. Magnesium off since yesterday, BP WNL after labetalol 100mg PO. RESENDIZ resolved yesterday and has not returned. Plan for DC home today, close BP monitoring at home and labetalol 100mg BID-will watch BP closely and hold for less than 130/80.
--- NOTE | 2020-08-17 02:17 | DIS ---
DATE OF ADMISSION: 08/14/2020 DATE OF DISCHARGE: 08/16/2020 ADMISSION DIAGNOSIS: Severe preeclampsia, remote from delivery during the . DISCHARGE DIAGNOSIS: Severe preeclampsia, remote from delivery during the . HOSPITAL COURSE: Ms. Jose Hodgson was admitted on 08/14/2020 for severe range blood pressures and a headache approximately 3 weeks . She presented after a 4-day headache and severe range blood pressures noted at home. With admission, she was placed on magnesium for seizure prophylaxis, her magnesium was discontinued the following day with mild range blood pressures noted, but resolution of her headache. She was started on labetalol 100 mg twice a day with normalization of her blood pressures. Her headache did not return. On hospital day #2, she was discharged home in good condition with plans to check her blood pressure twice a day and to hold her labetalol for blood pressures less than 130/80 based on her series of blood pressures after one dose of p.o. medications. She is to have blood pressure check in our office in 1 week and a visit that has previously been scheduled. She was discharged to home in good condition. Job ID: [id number]
== END 2020-08-16 08:10 | disposition home or self-care (01) ==
LOC: L&D 16:59 → UNDOADMIN 16:59 → L&D 17:03 → INTOOBSV 17:03
PROVIDERS: ADMIT Obstetrics & Gynecology; ATTEND Obstetrics & Gynecology
DX: O14.15 Severe pre-eclampsia, complicating the puerperium (principal); O13.5 Gestational [pregnancy-induced] hypertension without significant proteinuria, complicating the puerperium; O99.893 Other specified diseases and conditions complicating puerperium; R51.9 Headache, unspecified
CPT/HCPCS: 36415; 70450; 80053; 81003; 81015; 83735; 84550; 85025; 85610; 85730; 86850; 86900; 86901; 96374; 96375; 96376; G0378; J0360; J1885; J3475; J7050

== ENCOUNTER 2022-04-05 13:17 | Emergency (ER) | payer BC ==
[2022-04-05] MEDS ORDERED: ISOVUE-370 76%-LOCM 1 ML ONE (13:38)
[2022-04-05 14:35] LABS: #Eosinphils 0.1 thou/uL (0.0-0.7); #Lymphocytes 2.7 thou/uL (1.20-3.40); #Monocytes 0.6 thou/uL (0.11-0.59); #Neutrophils 4.6 thou/uL (1.40-6.50); %Basophils 0.3 % (0.0-1.0); %Eosinophils 0.9 % (0.0-10.0); %Lymphocytes 33.9 % (21.0-51.0); %Monocytes 7.1 % (0.0-10.0); %Neutrophils 57.7 % (42.0-75.0); Mean Corpuscular HGB CONC 32.9 g/dL (32.0-36.0); Mean Corpuscular Hemoglobin 30.3 pg (27.0-31.0); Mean Platelet Volume 7.7 fL (7.4-10.4); Platelet Count 289 thou/uL (130-400); RBC Distribution Width 12.1 % (11.5-14.5); Red Blood Cell (RBC) Count 4.62 mill/uL (4.20-5.40); White Blood Cell (WBC) Count 7.9 thou/uL (4.8-10.8)
[2022-04-05 14:36] LABS: BHCG - Serum Negative (NEGATIVE); Pregs Control Background? CLEAR/WHITE (CLR/WHITE); Pregs Control Bar Appear? YES (CONTROL BAR)
[2022-04-05 14:55] LABS: ALT (SGPT) Less than 7 U/L (8-55); AST (SGOT) 13 U/L (5-34); Albumin 4.2 g/dL (3.5-5.0); Alkaline Phosphatase 52 U/L (40-110); Anion Gap 13 mmol/L (10-20); BUN (Urea Nitrogen) 6 mg/dL (7.0-18.7); Bilirubin, Total 0.5 mg/dL (0.2-1.2); Calc. Creatinine Clearance 0 mL/min (70-130); Calcium 9.5 mg/dL (7.8-10.44); Carbon Dioxide 20 mmol/L (22-29); Chloride 108 mmol/L (98-107); Globulin 3.7 g/dL (2.4-3.5); Glucose 86 mg/dL (70-105); Lipase 13 U/L (8-78); Potassium 4.2 mmol/L (3.5-5.1); Protein, Total 7.9 g/dL (6.0-8.3); Sodium 137 mmol/L (136-145)
[2022-04-05] MEDS ORDERED: Ondansetron PF 4 MG/2 ML Vial ONE (15:56)
[2022-04-05] MEDS ORDERED: Ketorolac Tromethamine 30 MG/ML VIAL ONE (15:56)
[2022-04-05 16:43] LABS: Bilirubin Negative (Negative); Blood, Urine Negative (Negative); Glucose, Urine (Dipstick) Normal (Negative); Ketone, Urine Negative (Negative); Leukocyte Negative Leu/uL (Negative); Nitrite Negative (Negative); Protein, Urine (Dipstick) Negative (Neg-Trace); Specific Gravity, Urine 1.018 (1.002-1.036); Urobilinogen Normal mg/dL (Less than 2); pH, Urine 5.5 (5.0-9.0)
[2022-04-05] MEDS ORDERED: Dicyclomine 20 MG TAB ONE (16:45)
[2022-04-05] MEDS ORDERED: Pantoprazole 40 MG VIAL ONE (16:45)
[2022-04-05 16:48] LABS: Clarity Hazy (Clear); Pregnancy Test - Urine (BHCG) Negative (Negative); Pregu Control Background? CLEAR/WHITE (CLR/WHITE); Pregu Control Bar Appear? YES (CONTROL BAR); Specific Gravity 1.018 (1.002-1.036)
[2022-04-05] MEDS ORDERED: Acetaminophen 500 MG TAB ONE (17:40)
== END 2022-04-05 17:46 | disposition home or self-care (01) ==
LOC: ERS 13:17 → EEVIPCON 13:17 → ERS 17:46
DX: U07.1 COVID-19 (principal); R10.13 Epigastric pain; F17.210 Nicotine dependence, cigarettes, uncomplicated
CPT/HCPCS: 74177; 80053; 81003; 81025; 83690; 84703; 85025; 93005; 96361; 96374; 96375; C9113; J1885; J2405; Q9966; U0003; U0005

== ENCOUNTER 2022-11-28 07:38 | Emergency (ER) | payer BC, OTHER ==
[2022-11-28] MEDS ORDERED: Proparacaine 0.5% Opth 15 ML BOT ONE (08:14)
[2022-11-28] MEDS ORDERED: Fluorescein Opthalmic Strip ONE (08:14)
[2022-11-28] MEDS ORDERED: Acetaminophen 500 MG TAB ONE (09:10)
[2022-11-28] MEDS ORDERED: Ketorolac Tromethamine 30 MG/ML VIAL ONE (09:10)
== END 2022-11-28 09:28 | disposition home or self-care (01) ==
LOC: ERS 07:38
DX: S05.01XA Injury of conjunctiva and corneal abrasion without foreign body, right eye, initial encounter (principal); F17.210 Nicotine dependence, cigarettes, uncomplicated; X58.XXXA Exposure to other specified factors, initial encounter
CPT/HCPCS: 96372; 99283; J1885

== ENCOUNTER 2023-02-21 20:40 | Emergency (ER) | payer BC, OTHER ==
[2023-02-21 21:07] LABS: Bilirubin Negative (Negative); Blood, Urine Negative (Negative); Clarity Clear (Clear); Glucose, Urine (Dipstick) Normal (Negative); Ketone, Urine Trace mg/dL (Negative); Leukocyte Negative Leu/uL (Negative); Nitrite Negative (Negative); Protein, Urine (Dipstick) Negative (Neg-Trace); Specific Gravity, Urine 1.024 (1.002-1.036); Urobilinogen Normal mg/dL (Less than 2); pH, Urine 6.5 (5.0-9.0)
[2023-02-21 21:39] LABS: #Basophils 0.1 thou/uL (0.0-0.2); #Eosinphils 0.1 thou/uL (0.0-0.7); #Lymphocytes 3.2 thou/uL (1.20-3.40); #Monocytes 0.5 thou/uL (0.11-0.59); #Neutrophils 4.5 thou/uL (1.40-6.50); %Basophils 0.8 % (0.0-1.0); %Eosinophils 1.2 % (0.0-10.0); %Neutrophils 53.9 % (42.0-75.0); Mean Corpuscular HGB CONC 31.8 g/dL (32.0-36.0); Mean Corpuscular Hemoglobin 28.7 pg (27.0-31.0); Mean Corpuscular Volume 90.4 fl (78.0-98.0); Mean Platelet Volume 8.5 fL (7.4-10.4); Platelet Count 290 10x3/uL (130-400); RBC Distribution Width 12.2 % (11.5-14.5); Red Blood Cell (RBC) Count 4.52 mill/uL (4.20-5.40); White Blood Cell (WBC) Count 8.4 10x3/uL (4.8-10.8)
[2023-02-21 21:45] LABS: ALT (SGPT) Less than 7 U/L (8-55); AST (SGOT) 13 U/L (5-34); Albumin 4.1 g/dL (3.5-5.0); Alkaline Phosphatase 49 U/L (40-110); Anion Gap 13 mmol/L (10-20); BUN (Urea Nitrogen) 7 mg/dL (7.0-18.7); Bilirubin, Total Less than 0.2 mg/dL (0.2-1.2); Calc. Creatinine Clearance 0 mL/min (70-130); Calcium 9.6 mg/dL (7.8-10.44); Carbon Dioxide 19 mmol/L (22-29); Chloride 110 mmol/L (98-107); Estimated GFR 85; Globulin 3.4 g/dL (2.4-3.5); Glucose 103 mg/dL (70-105); Lipase 25 U/L (8-78); Potassium 4.1 mmol/L (3.5-5.1); Protein, Total 7.5 g/dL (6.0-8.3); Sodium 138 mmol/L (136-145)
[2023-02-21 21:55] LABS: BHCG - Serum Negative (NEGATIVE); Pregs Control Background? CLEAR/WHITE (CLR/WHITE); Pregs Control Bar Appear? YES (CONTROL BAR)
[2023-02-22] MEDS ORDERED: Morphine 4 MG/ML VIAL ONE (00:21)
[2023-02-22] MEDS ORDERED: Ondansetron PF 4 MG/2 ML Vial ONE (00:21)
[2023-02-22] MEDS ORDERED: fentaNYL 50 mcg/mL 1 mL Vial ONE (01:59)
[2023-02-22] MEDS ORDERED: Iopamidol 370 76% 100 ML VIAL ONE (08:40)
== END 2023-02-22 02:57 | disposition home or self-care (01) ==
LOC: ERS 20:40
DX: R10.9 Unspecified abdominal pain (principal); F17.210 Nicotine dependence, cigarettes, uncomplicated
CPT/HCPCS: 36415; 74177; 80053; 81003; 83605; 83690; 84703; 85025; 87040; 87086; 93005; 96374; 96375; J2270; J2405; J3010; Q9967

== ENCOUNTER 2023-07-06 10:23 | Emergency (ER) | payer BC, OTHER ==
[2023-07-06] MEDS ORDERED: Ibuprofen 200 MG TAB ONE (10:56)
[2023-07-06 12:21] LABS: SARS-CoV-2 NAA Rapid Test Not Detected (NotDetected)
== END 2023-07-06 12:40 | disposition home or self-care (01) ==
LOC: ERS 10:23
DX: J06.9 Acute upper respiratory infection, unspecified (principal); F17.210 Nicotine dependence, cigarettes, uncomplicated; Z20.822 Contact with and (suspected) exposure to COVID-19
CPT/HCPCS: 99283

== ENCOUNTER 2023-08-12 22:44 | Emergency (ER) | payer BC, OTHER ==
[2023-08-12 23:49] LABS: Bilirubin Negative (Negative); Blood, Urine Negative (Negative); CAUTI Indications for Culture Pelvic or flank pain; Clarity Clear (Clear); Glucose, Urine (Dipstick) Normal (Negative); Ketone, Urine Negative (Negative); Leukocyte 75 Leu/uL (Negative); Nitrite Negative (Negative); Protein, Urine (Dipstick) 20 mg/dL (Neg-Trace); Specific Gravity, Urine 1.025 (1.002-1.036); Urobilinogen 3 mg/dL (Less than 2); pH, Urine 7.5 (5.0-9.0)
[2023-08-12 23:50] LABS: Bacteria/HPF 1+ HPF (None Seen)
[2023-08-12 23:51] LABS: Pregnancy Test - Urine (BHCG) POSITIVE (Negative); Pregu Control Background? CLEAR/WHITE (CLR/WHITE); Pregu Control Bar Appear? YES (CONTROL BAR); Specific Gravity 1.025 (1.002-1.036)
[2023-08-12 23:52] LABS: Urine Culture Reflex No No
[2023-08-13 00:10] LABS: #Eosinphils 0.1 thou/uL (0.0-0.7); #Monocytes 0.6 thou/uL (0.11-0.59); #Neutrophils 6.8 thou/uL (1.40-6.50); %Basophils 0.4 % (0.0-1.0); %Eosinophils 0.9 % (0.0-10.0); %Lymphocytes 25.4 % (21.0-51.0); %Monocytes 6.3 % (0.0-10.0); %Neutrophils 66.8 % (42.0-75.0); Hematocrit 38.1 % (36.0-47.0); Hemoglobin 12.2 g/dL (12.0-16.0); Mean Corpuscular Hemoglobin 29.2 pg (27.0-31.0); Mean Corpuscular Volume 91.1 fl (78.0-98.0); Mean Platelet Volume 10.4 fL (7.4-10.4); Platelet Count 276 10x3/uL (130-400); RBC Distribution Width 13.5 % (11.5-14.5); Red Blood Cell (RBC) Count 4.18 mill/uL (4.20-5.40); White Blood Cell (WBC) Count 10.1 10x3/uL (4.8-10.8)
[2023-08-13] MEDS ORDERED: Acetaminophen 500 MG TAB ONE (00:12)
[2023-08-13 00:35] LABS: ALT (SGPT) 8 U/L (8-55); AST (SGOT) 12 U/L (5-34); Albumin 4.5 g/dL (3.5-5.0); Alkaline Phosphatase 50 U/L (40-110); Anion Gap 12 mmol/L (10-20); BUN (Urea Nitrogen) 7 mg/dL (7.0-18.7); Bilirubin, Total 0.2 mg/dL (0.2-1.2); Calc. Creatinine Clearance 0 mL/min (70-130); Calcium 9.2 mg/dL (7.8-10.44); Carbon Dioxide 19 mmol/L (22-29); Chloride 109 mmol/L (98-107); Estimated GFR 102; Glucose 98 mg/dL (70-105); Lipase 9 U/L (8-78); Potassium 4.4 mmol/L (3.5-5.1); Protein, Total 7.5 g/dL (6.0-8.3); Sodium 136 mmol/L (136-145)
[2023-08-13 00:41] LABS: BHCG - Serum POSITIVE (NEGATIVE); Pregs Control Background? CLEAR/WHITE (CLR/WHITE); Pregs Control Bar Appear? YES (CONTROL BAR)
[2023-08-13] MEDS ORDERED: Ondansetron PF 4 MG/2 ML Vial ONE (00:58)
[2023-08-13] MEDS ORDERED: Morphine 4 MG/ML VIAL ONE ×2 (00:58→02:39)
[2023-08-13] MEDS ORDERED: diphenhydrAMINE 50 MG/ML VIAL ONE (01:49)
== END 2023-08-13 02:48 | disposition home or self-care (01) ==
LOC: ERS 22:44
DX: O20.0 Threatened abortion (principal); F17.210 Nicotine dependence, cigarettes, uncomplicated; Z3A.01 Less than 8 weeks gestation of pregnancy
CPT/HCPCS: 36415; 76856; 80053; 81001; 81025; 83690; 84702; 84703; 85025; 86850; 86900; 86901; 93005; 96361; 96374; 96375; 96376; J1200; J2270; J2405

== ENCOUNTER 2023-08-14 10:19 | Emergency (ER) | payer BC, OTHER ==
[2023-08-14] MEDS ORDERED: Acetaminophen 500 MG TAB ONE (11:47)
[2023-08-14 12:40] LABS: #Eosinphils 0.1 thou/uL (0.0-0.7); #Monocytes 0.6 thou/uL (0.11-0.59); #Neutrophils 7.1 thou/uL (1.40-6.50); %Basophils 0.3 % (0.0-1.0); %Eosinophils 0.9 % (0.0-10.0); %Lymphocytes 23.6 % (21.0-51.0); %Monocytes 6.1 % (0.0-10.0); %Neutrophils 68.8 % (42.0-75.0); Hematocrit 32.4 % (36.0-47.0); Hemoglobin 10.8 g/dL (12.0-16.0); Mean Corpuscular HGB CONC 33.3 g/dL (32.0-36.0); Mean Corpuscular Hemoglobin 29.6 pg (27.0-31.0); Mean Corpuscular Volume 88.8 fl (78.0-98.0); Mean Platelet Volume 10.2 fL (7.4-10.4); Platelet Count 275 10x3/uL (130-400); RBC Distribution Width 13.4 % (11.5-14.5); Red Blood Cell (RBC) Count 3.65 mill/uL (4.20-5.40); White Blood Cell (WBC) Count 10.2 10x3/uL (4.8-10.8)
[2023-08-14] MEDS ORDERED: Morphine 4 MG/ML VIAL ONE (13:34)
[2023-08-14] MEDS ORDERED: diphenhydrAMINE 50 MG/ML VIAL ONE (13:35)
[2023-08-14] MEDS ORDERED: Ketorolac Tromethamine 30 MG/ML VIAL ONE (13:35)
== END 2023-08-14 13:50 | disposition home or self-care (01) ==
LOC: ERS 10:19
DX: O02.1 Missed abortion (principal); F17.210 Nicotine dependence, cigarettes, uncomplicated
CPT/HCPCS: 76856; 84702; 85025; 86850; 86900; 86901; J1200; J1885; J2270

== ENCOUNTER 2023-09-15 01:45 | Emergency (ER) | payer BC, OTHER ==
[2023-09-15] MEDS ORDERED: Lidocaine 1% PF 5 ML VIAL ONE (03:21)
[2023-09-15] MEDS ORDERED: Bupivacaine 0.25% 10 ML VIAL ONE (03:21)
[2023-09-15] MEDS ORDERED: Lidocaine 1% w/Epinephrine 1:100K 20 ML VIAL FS SCH (03:30)
[2023-09-15] MEDS ORDERED: HYDROcodone/Acetaminophen 5/325 mg Tablet ONE (04:03)
== END 2023-09-15 04:12 | disposition home or self-care (01) ==
LOC: ERS 01:45
DX: K03.81 Cracked tooth (principal); F17.210 Nicotine dependence, cigarettes, uncomplicated
CPT/HCPCS: 64400; S0020

== ENCOUNTER 2023-10-02 09:39 | Emergency (ER) | payer OTHER, SELFPAY ==
[2023-10-02] MEDS ORDERED: Lidocaine 1% w/Epinephrine 1:100K 20 ML VIAL ONE (10:17)
== END 2023-10-02 11:06 | disposition home or self-care (01) ==
LOC: ERS 09:39
DX: L02.31 Cutaneous abscess of buttock (principal); F17.210 Nicotine dependence, cigarettes, uncomplicated
CPT/HCPCS: 99283

== ENCOUNTER 2025-05-17 14:34 | Emergency (ER) | payer BC, SELFPAY ==
[~2025-05-17 14:34] MED LIST changes: +Iopamidol-370 76% 500 ML MDV (1 ML CHARGE) ONE; -hydrALAZINE 20 MG/ML VIAL SLOW IVP PRN
[2025-05-17 15:27] LABS: Hematocrit 38.0 % (36.0-47.0); Hemoglobin 12.6 g/dL (12.0-16.0); Mean Corpuscular Hemoglobin 28.4 pg (27.0-31.0); Mean Corpuscular Volume 85.8 fL (78.0-98.0); Platelet Count 303 10x3/uL (130-400); Red Blood Cell (RBC) Count 4.43 mill/uL (4.20-5.40); White Blood Cell (WBC) Count 9.92 10x3/uL (4.8-10.8)
[2025-05-17] MEDS ORDERED: Dexamethasone 10 MG/ML VIAL ONE (15:27)
[2025-05-17 15:39] LABS: ALT (SGPT) 8 U/L (Less than 34); AST (SGOT) 13 U/L (11-34); Albumin 4.2 g/dL (3.1-4.5); Alkaline Phosphatase 54 U/L (40-110); Anion Gap 10 mmol/L (10-20); BUN (Urea Nitrogen) 6 mg/dL (7.0-18.7); Bilirubin, Total 0.3 mg/dL (0.3-1.2); Calc. Creatinine Clearance 0 mL/min (70-130); Calcium 9.1 mg/dL (7.8-10.44); Carbon Dioxide 22 mmol/L (22-29); Chloride 109 mmol/L (98-107); Globulin 3.4 g/dL (2.4-3.5); Glucose 105 mg/dL (70-105); Potassium 3.9 mmol/L (3.5-5.1); Sodium 137 mmol/L (136-145)
[2025-05-17] MEDS ORDERED: Racepinephrine 2.25% 0.5 ML NEB ONE (16:00)
[2025-05-17 16:01] LABS: Platelet Adequacy Comment Platelets Normal; Smudge Cells 8.0 %
[2025-05-17 16:39] LABS: Troponin I Less than 0.010 ng/mL (< 0.028)
[2025-05-17] MEDS ORDERED: Ketorolac Tromethamine 30 MG (1 mL) VIAL ONE (17:10)
== END 2025-05-17 21:06 ==
LOC: ERS 14:34
DX: U07.1 COVID-19 (principal); Z55.6 Problems related to health literacy
CPT/HCPCS: 36415; 70360; 70491; 71045; 80053; 83880; 84484; 85025; 87428; 93005; 94640; 96374; 96375; J1100; J1885; J2060; J3010; J7620

== ENCOUNTER 2025-10-11 20:32 | Emergency (ER) | payer SELFPAY ==
[2025-10-11 20:49] LABS: Pregnancy Test - Urine (BHCG) POSITIVE (Negative); Pregu Control Background? CLEAR/WHITE (CLR/WHITE); Pregu Control Bar Appear? YES (CONTROL BAR)
[2025-10-11 20:51] LABS: Bacteria/HPF None Seen HPF (None Seen); CAUTI Indications for Culture Acute Hematuria; Glucose, Urine (Dipstick) Normal (Negative); Leukocyte 250 Leu/uL (Negative); Protein, Urine (Dipstick) Negative (Neg-Trace); RBC/HPF None Seen HPF (0-3); Specific Gravity, Urine 1.019 (1.002-1.036); WBC/HPF 0-3 HPF (0-3)
[2025-10-11 20:53] LABS: Urine Culture Reflex No No
== END 2025-10-11 21:00 | disposition home or self-care (01) ==
LOC: ERS 20:32
DX: R11.2 Nausea with vomiting, unspecified (principal); Z33.1 Pregnant state, incidental
CPT/HCPCS: 81001; 81025; 87077; 87086; 99284